=== PATIENT | male | born 1990 | race Caucasian/White ===

== ENCOUNTER 2020-01-10 11:34 | Emergency (ER) | payer OTHER ==
--- NOTE | 2020-01-10 12:35 | CT ---
CT facial bones Technique: Multiple axial sections through the facial bones were obtained. Comparison: No previous facial bone study. Findings: Mild mucosal thickening is seen within the right frontal sinus and within the ethmoid sinuses. No air-fluid levels are seen. Soft tissue air is noted within the nose on the right side. Mild soft tissue air is seen within the right cheek. Right and left globes are symmetric. No retrobulbar abnormality is appreciated. No facial bone fracture is identified. Impression: 1. Soft tissue air within the right side of the nose and within the right cheek. 2. Paranasal sinus findings believed to represent mild chronic sinusitis. 3. No acute facial bone fracture is appreciated. Diagnostic code #3 This report was dictated in MDT
[2020-01-10] MEDS ORDERED: Diphtheria,Pertussis(Acell),Tetanus Vaccine 0.5 ML Syringe IM ONE (12:43)
[2020-01-10] MEDS ORDERED: Lidocaine 1% with EPINEPHrine 1:100,000 10 ML MDV INJECT ONE (12:47)
[2020-01-10] MEDS ORDERED: Lidocaine 1% with EPINEPHrine 1:100,000 20 ML MDV ONE (12:48)
[2020-01-10] MEDS ORDERED: Octyl 2-Cyanoacrylate 1 APPLIC TUBE ONE (13:05)
[2020-01-10] MEDS ORDERED: Octyl 2-Cyanoacrylate 1 APPLIC TUBE TOP ONE (13:09)
[2020-01-10] MEDS ORDERED: Octyl 2-Cyanoacrylate 1 Tube TOP ONE (13:10)
[2020-01-10] MEDS ORDERED: Octyl 2-Cyanoacrylate 1 Tube ONE (13:10)
--- NOTE | 2020-01-10 13:43 | EDM.PDOC ---
ED HPI GENERAL MEDICAL PROBLEM - General Chief Complaint: Trauma Stated Complaint: INJURIES TO FACE Time Seen by Provider: 01/10/20 11:38 Source of Information: Reports: Patient History Limitations: Reports: No Limitations - History of Present Illness INITIAL COMMENTS - FREE TEXT/NARRATIVE: Was working in the air-filled on a pressurized nozzle which blew up in his face broke his goggles and safety shield. This pushed him back he sustained a small laceration to the right side of his nose and multiple lacerations on his face and decreased hearing. No LOC. Patient had no other trauma. Tetanus is not up -to-date Duration: Hour(s): Location: Reports: Face Quality: Reports: Ache Severity: Moderate Improves with: Reports: None Context: Reports: Trauma, Other (And happened at work.) - Related Data Allergies Allergy/AdvReac Type Severity Reaction Status Date / Time No Known Allergies Allergy Verified 01/10/20 12:01 Home Meds: Home Meds . [No Known Home Meds] 01/10/20 [History] Past Medical History - Past Health History Medical/Surgical History: Denies Medical/Surgical History - Infectious Disease History Infectious Disease History: Reports: None Social & Family History - Family History Family Medical History: Noncontributory - Tobacco Use Smoking Status *Q: Never Smoker - Recreational Drug Use Recreational Drug Use: No Review of Systems - Review of Systems Review Of Systems: See Below Constitutional: Reports: No Symptoms Eyes: Reports: No Symptoms Ears: Reports: Other (Able to hear out of the right ear) Nose: Reports: Other (Ration to the right side of the nose) Mouth/Throat: Reports: No Symptoms Respiratory: Reports: No Symptoms Cardiovascular: Reports: No Symptoms GI/Abdominal: Reports: No Symptoms Genitourinary: Reports: No Symptoms Musculoskeletal: Reports: No Symptoms Skin: Reports: No Symptoms Neurological: Reports: No Symptoms Psychiatric: Reports: No Symptoms ED EXAM, GENERAL - Physical Exam Exam: See Below Exam Limited By: No Limitations General Appearance: Alert, WD/WN, Mild Distress Eye Exam: Bilateral Eye: Normal Fundi, Normal Inspection Ear Exam: Right Ear: Foreign Body, Bilateral Ear: TM normal (Lots of wax. TM is not ruptured. At reddened) Nose: Normal Inspection, Normal Mucosa, No Blood Throat/Mouth: Normal Inspection, Normal Lips, Normal Teeth, Normal Oropharynx, Normal Voice, No Airway Compromise Head: Other (Has multiple small lacerations all over the face and redness to the face.) Neck: Normal Inspection, Supple, Non-Tender Respiratory/Chest: No Respiratory Distress, Lungs Clear, Normal Breath Sounds, No Accessory Muscle Use, Chest Non-Tender Cardiovascular: Normal Peripheral Pulses, Regular Rate, Rhythm, No JVD, No Murmur GI/Abdominal: Normal Bowel Sounds, Soft, Non-Tender, No Distention, No Abnormal Bruit (Male) Exam: Deferred Rectal (Males) Exam: Deferred Back Exam: Normal Inspection, Full Range of Motion Psychiatric: Normal Affect, Normal Mood Skin Exam: Warm, Dry ED TRAUMA PROCEDURES - Laceration/Wound Repair Right Face Appearance: Linear Distal NVT: Neuro & Vascular Intact Anesthetic Type: Local Local Anesthesia - Lidocaine (Xylocaine): 1% with EPI Local Anesthetic Volume: 5cc Skin Prep: Chlorhexidine (Hibiciens) Exploration/Debridement/Repair: Wound Explored, In a Bloodless Field, No Foreign Material Found Closed With: Dermabond Suture Size: 5-0 # of Sutures: 6 Suture Type: Nylon, Simple Tetanus Status Addressed: Yes Course - Vital Signs Text/Narrative:: 29-year-old gentleman presents the emergency room chief complaint of laceration to the right side of his face after an injury at work. Patient has no evidence of TM rupture although his hearing is decreased. CAT scan of the maxillofacial shows air in the right side no foreign bodies and no fractures. Since laceration to the right side of his face was sutured with 5-0 nylon sutures simple. No evidence of any foreign body seen. Patient also had Dermabond placed on lacerations at the corner of his left angles of his lips. Sustained a procedure well I discussed the case with ENT on-call and gave him the patient's number for follow-up. I will also give the patient Dr. Villarreal's phone number. We will schedule hearing test with the patient and follow- up his injuries. I instructed the patient to have his sutures removed in 5 to 7 days Last Recorded V/S: Last Vital Signs Temp 97.0 F 01/10/20 11:38 Pulse 65 01/10/20 11:38 Resp 18 01/10/20 11:38 BP 126/64 01/10/20 11:38 Pulse Ox 97 01/10/20 11:38 - Orders/Labs/Meds Orders: Active Orders 24 hr Category Date Time Status Vaccines to be Administered [RC] PER UNIT ROUTINE Care 01/10/20 12:43 Active Meds: Medications Discontinued Medications Generic Name Dose Route Start Last Admin Trade Name Rosa Elena PRN Reason Stop Dose Admin Diphtheria/Tetanus/Acell Pertussis 0.5 ml 01/10/20 12:43 01/10/20 13:24 Adacel IM 01/10/20 12:44 0.5 ml .ONCE ONE Administration Lidocaine/Epinephrine 10 ml 01/10/20 12:47 01/10/20 13:26 Xylocaine 1% With Epinephrine 1:100,000 INJECT 01/10/20 12:48 Not Given ONETIME ONE Lidocaine/Epinephrine Confirm 01/10/20 12:48 01/10/20 13:25 Xylocaine 1% With Epinephrine 1:100,000 Administered 01/10/20 12:49 20 ml Dose Administration 20 ml .ROUTE .STK-MED ONE Octyl Cyanoacrylate Confirm 01/10/20 13:05 01/10/20 13:26 Dermabond Mini Administered 01/10/20 13:06 Not Given Dose 1 applic .ROUTE .STK-MED ONE Octyl Cyanoacrylate 1 applic 01/10/20 13:09 01/10/20 13:25 Dermabond Mini TOP 01/10/20 13:10 1 applic ONETIME ONE Administration Octyl Cyanoacrylate 1 applic 01/10/20 13:10 01/10/20 13:23 Dermabond Advance TOP 01/10/20 13:11 1 applic ONETIME ONE Administration Octyl Cyanoacrylate Confirm 01/10/20 13:10 01/10/20 13:26 Dermabond Advance Administered 01/10/20 13:11 Not Given Dose 1 applic .ROUTE .STK-MED ONE Departure - Departure Time of Disposition: 13:47 Disposition: Home, Self-Care 01 Condition: Good Clinical Impression: Otitic barotrauma, initial encounter, Laceration of face - Discharge Information Referrals: PCP,None [Primary Care Provider] - Sepsis Event Note - Evaluation Sepsis Screening Result: No Definite Risk - Focused Exam Vital Signs: Vital Signs Temp Pulse Resp BP Pulse Ox 01/10/20 11:38 97.0 F 65 18 126/64 97 Date Exam was Performed: 01/10/20 Time Exam was Performed: 13:38 - My Orders Last 24 Hours: My Active Orders 01/10/20 12:43 Vaccines to be Administered [RC] PER UNIT ROUTINE - Assessment/Plan Last 24 Hours: My Active Orders 01/10/20 12:43 Vaccines to be Administered [RC] PER UNIT ROUTINE
[2020-01-10] MEDS ORDERED: Cephalexin 500 MG Cap PO ONE (13:48)
== END 2020-01-10 14:45 | disposition home or self-care (01) ==
LOC: MW.ED 11:34
DX: S01.81XA Laceration without foreign body of other part of head, initial encounter (principal); T70.0XXA Otitic barotrauma, initial encounter; Z23 Encounter for immunization; W26.8XXA Contact with other sharp object(s), not elsewhere classified, initial encounter
CPT/HCPCS: 12011; 70486; 90471; 90715; 99283; A9270